=== PATIENT | male | born 1980 ===

== ENCOUNTER → 2016-04-17 | Outpatient (REF) | payer OTHER ==
[2016-04-17 19:53] LABS: NON PROGRESSIVE MOTILITY (c) 12 %; PROGRESSIVE MOTILITY (a) 38 % (>=32); SPERM ABNORMAL FORMS OTHER (SPECIFIY); TOTAL MOTILITY 50 % (>=40)
[2016-04-17 19:54] LABS: % NORMAL FORMS 8 % (>=4); IMMOTILITY 50 %; SPERM# 82.5 M/Ejac (33-46); TOTAL FUNCTIONAL 5.7 M/Ejac.; TOTAL PROGRESSIVE SPERM 31.2 M/Ejac.
== END ==
LOC: M LAB REF 14:31
PROVIDERS: ATTEND Physician Assistant
DX: Z31.41 Encounter for fertility testing (principal)